=== PATIENT | female | born 1985 | race African-American/Black ===

== ENCOUNTER 2021-03-08 12:57 | Emergency (ER) | payer BC ==
[~2021-03-08] VITALS: Ht 165.1 cm; Wt 86.0 kg
[2021-03-08] MEDS ORDERED: PRODAXA (13:18)
[2021-03-08] MEDS ORDERED: SODIUM CHLORIDE 0.9% 1,000 ML IV ONE (14:30)
[2021-03-08] MEDS ORDERED: METOCLOPRAMIDE HCL 10MG/2ML VIAL IV ONE (14:30)
[2021-03-08] MEDS ORDERED: DIPHENHYDRAMINE 50MG/ML VIAL IV ONE (14:30)
[2021-03-08 14:51] LABS: CHLORIDE 109 mEq/L (98-107)
[2021-03-08 14:52] LABS: BASOPHILS % 0.7 % (0.0-2.0); EOSINOPHILS % 4.9 % (0.0-5.0); HEMOGLOBIN. 10.7 g/dL (12.0-16.0); LYMPHOCYTES % 36.2 % (20.0-50.0); MEAN CORPUSCULAR HEMOGLOBIN 26.3 pg (28.0-32.0); MEAN CORPUSCULAR VOLUME 81.2 fL (81.0-99.0); MONOCYTES % 7.8 % (2.0-8.0); NEUTROPHILS % 50.4 % (40.0-76.0); PLATELET 352 x1000/uL (130-400); RED BLOOD CELL COUNT 4.07 mill/uL (4.2-5.4); RED CELL DISTRIBUTION WIDTH 15.8 % (11.6-14.6)
[2021-03-08 15:08] LABS: HCG SCREEN NEGATIVE
[2021-03-08 16:55] VITALS: BP 121/79
== END 2021-03-08 17:12 | disposition left against medical advice (07) ==
LOC: ER 12:57
DX: G43.909 Migraine, unspecified, not intractable, without status migrainosus (principal); D64.9 Anemia, unspecified; R00.0 Tachycardia, unspecified; E86.0 Dehydration; Z86.718 Personal history of other venous thrombosis and embolism; Z86.711 Personal history of pulmonary embolism; Z79.01 Long term (current) use of anticoagulants; Z98.890 Other specified postprocedural states
CPT/HCPCS: 36415; 80053; 81025; 84703; 85025; 93005; 96361; 96374; 96375; 99284; J1200; J2765; J7030